=== PATIENT | female | born 1975 | race Caucasian/White ===

== ENCOUNTER 2021-11-18 11:49 | Inpatient (IN) ==
[2021-11-18 12:33] LABS: Bilirubin,Urine Negative (Negative); Blood,Urine Trace (Negative); Clarity,Urine Clear (Clear); Color,Urine Yellow (Yellow); Glucose,Urine (UA) Normal (Normal); Ketones,Urine 80 mg/dL (Negative); Leukocyte Esterase,Urine Negative (Negative); Mucus,Urine Many per lpf (None-Few); Nitrite,Urine Negative (Negative); Protein,Urine 100 mg/dL (Neg-Trace); RBC,Urine 0-3 per hpf (0-3); Specific Gravity,Urine > 1.030 (1.010-1.025); Squamous Epithelial Cell,Urine Moderate per hpf (None-Few); WBC,Urine 0-3 per hpf (0-3)
[2021-11-18 12:39] LABS: Basophils % 0.2 %; Eosinophils % 0.1 %; Hematocrit 42.5 % (35.3-44.9); Hemoglobin 14.6 g/dL (11.5-15.4); Immature Granulocytes % 0.4 % (0-4); Lymphocytes # 1.7 K/mcL (0.6-4.6); Lymphocytes % 12.4 %; Mean Corpuscular HGB Conc 34.4 g/dL (31.6-35.5); Mean Corpuscular Hemoglobin 31.9 pg (28.0-33.3); Mean Platelet Volume 9.7 fL (9.4-12.4); Monocytes % 7.5 %; Neutrophils # 10.7 K/mcL (1.6-8.9); Platelet Count 344 K/mcL (140-400); Red Blood Count 4.57 M/mcL (3.82-4.97); Red Cell Distribution Width 13.3 % (11.5-14.5); Segmented Neutrophils % 79.4 %; White Blood Count 13.5 K/mcL (4.3-11.1)
[2021-11-18 13:00] LABS: Amphetamine Screen,Urine Negative ng/mL (Cutoff=1000); Barbiturate Screen,Urine Negative ng/mL (Cutoff=200); Benzodiazepines Screen,Urine Negative ng/mL (Cutoff=200); Cannabinoid Screen,Urine Negative ng/mL (Cutoff = 50); Cocaine Screen,Urine Negative ng/mL (Cutoff= 300); Opiate Screen,Urine Negative ng/mL (Cutoff=300); Phencyclidine Screen,Urine Negative ng/mL (Cutoff=25)
[2021-11-18 13:25] LABS: Acetaminophen < 10 mcg/mL (10-20); BUN/Creatinine Ratio 18 (6-26); Blood Urea Nitrogen 12 mg/dL (6-20); Calcium 9.5 mg/dL (8.6-10.3); Carbon Dioxide 22 mEq/L (23-29); Chloride 102 mEq/L (98-107); Chol/HDL Ratio 2.1 (0-4.9); Cholesterol 143 mg/dL (< 200); Ethanol < 10 mg/dL (Less than 10); Glucose 69 mg/dL (70-105); HDL Cholesterol 68 mg/dL (40-59); LDL Cholesterol,Calculated 63 mg/dL (< 100); Osmolality,Calculated 280 (280-300); Potassium 3.5 mEq/L (3.5-5.1); Salicylate < 2.5 mg/dL (15.0-30.0); Sodium 136 mEq/L (136-145); Triglycerides 59 mg/dL (< 150); eGFR For African Americans > 60 (> 60); eGFR For Non-African Americans > 60 (> 60)
[2021-11-18 13:43] LABS: Estimated Average Glucose 117 mg/dl; Hemoglobin A1C 5.7 %
[2021-11-18 17:34] LABS: Influenza A PCR Negative (Negative); Influenza B PCR Negative (Negative); Resp. Syncytial Virus PCR Negative (Negative)
[2021-11-18 18:13] LABS: SARS-CoV-2 by PCR (In House) Negative (Negative)
[2021-11-18] MEDS ORDERED: *HR* LORazepam 1 MG TABLET PO PRN (20:42)
[2021-11-18] MEDS ORDERED: *HR* LORazepam 2 MG/ML VIAL IM PRN (20:42)
[2021-11-18] MEDS ORDERED: haloperidoL 5 MG TABLET PO PRN (20:42)
[2021-11-18] MEDS ORDERED: Haloperidol Lactate 5 MG/ML VIAL IM PRN (20:42)
[2021-11-19] MEDS: Nicotine 21 MG PATCH.TD24 TD SCH ×2 (01:38→08:40)
[2021-11-19] MEDS: Ibuprofen 400 MG TABLET PO PRN (04:57)
[2021-11-19] MEDS ORDERED: Furosemide 20 MG TABLET PO PRN (08:53)
[2021-11-19] MEDS ORDERED: *HR* Buprenorphine HCl 8 MG TAB.SUBL SL SCH (09:00)
[2021-11-19] MEDS: Loratadine 10 MG TABLET PO SCH (09:26)
[2021-11-19] MEDS: Gabapentin 400 MG CAPSULE PO SCH ×3 (09:42→20:33)
[2021-11-19] MEDS: RisperiDONE-M 1 MG TAB.RAPDIS PO SCH ×2 (12:54→20:33)
[2021-11-19 13:00] LABS: Albumin 4.3 g/dL (3.5-5.7); Albumin/Globulin Ratio 1.8 (1.1-2.2); Bilirubin,Direct 0.1 mg/dL (0.0-0.2); Bilirubin,Indirect 0.8 mg/dL (0.0-1.0); Bilirubin,Total 0.9 mg/dL (0.3-1.0); Chol/HDL Ratio 2.3 (0-4.9); Globulin 2.4 g/dL (2.4-3.5); Total Protein 6.7 g/dL (6.4-8.9)
[2021-11-19 13:12] LABS: Thyroid Stimulating Hormone 1.703 mcIU/mL (0.340-5.600)
[2021-11-19 14:40] LABS: Bilirubin,Urine Negative (Negative); Blood,Urine Negative (Negative); Clarity,Urine Clear (Clear); Color,Urine Light-Yellow (Yellow); Glucose,Urine (UA) Normal (Normal); Ketones,Urine Negative (Negative); Leukocyte Esterase,Urine Negative (Negative); Mucus,Urine Few per lpf (None-Few); Nitrite,Urine Negative (Negative); Protein,Urine 30 mg/dL (Neg-Trace); RBC,Urine 0-3 per hpf (0-3); Specific Gravity,Urine 1.027 (1.010-1.025); Squamous Epithelial Cell,Urine Moderate per hpf (None-Few); WBC,Urine 0-3 per hpf (0-3)
[2021-11-19] MEDS ORDERED: Patient Taking Own Medication 1 EACH PO SCH (15:15)
[2021-11-19] MEDS: *HR* Buprenorphine HCl 8 MG TAB.SUBL SL SCH (20:34)
[2021-11-19] MEDS: traZODone 50 MG TABLET PO PRN (20:34)
[2021-11-19] MEDS: hydrOXYzine pamoate 25 MG CAPSULE PO PRN (20:34)
[2021-11-20] MEDS ORDERED: Hydrocortisone Rectal 2.5% CRM 28 GM TUBE RC PRN (06:49)
[2021-11-20] MEDS: hydrOXYzine pamoate 25 MG CAPSULE PO PRN ×2 (07:29→18:36)
[2021-11-20] MEDS: Ibuprofen 400 MG TABLET PO PRN (07:29)
[2021-11-20] MEDS: Gabapentin 400 MG CAPSULE PO SCH ×4 (07:32→22:03)
[2021-11-20] MEDS: Loratadine 10 MG TABLET PO SCH (07:33)
[2021-11-20] MEDS: Nicotine 21 MG PATCH.TD24 TD SCH (07:33)
[2021-11-20] MEDS: *HR* Buprenorphine HCl 8 MG TAB.SUBL SL SCH ×2 (07:33→22:03)
[2021-11-20] MEDS: RisperiDONE-M 1 MG TAB.RAPDIS PO SCH ×2 (07:33→22:03)
[2021-11-21] MEDS: hydrOXYzine pamoate 25 MG CAPSULE PO PRN (04:53)
[2021-11-21] MEDS: Nicotine 21 MG PATCH.TD24 TD SCH (08:37)
[2021-11-21] MEDS: Gabapentin 400 MG CAPSULE PO SCH ×3 (08:37→21:00)
[2021-11-21] MEDS ORDERED: MOM Conc 10 ML UD.LIQ PO PRN (08:37)
[2021-11-21] MEDS ORDERED: Mag Hydrox/Al Hydrox/Simeth 30 ML UDC PO PRN (08:37)
[2021-11-21] MEDS: RisperiDONE-M 1 MG TAB.RAPDIS PO SCH ×2 (08:38→21:00)
[2021-11-21] MEDS: *HR* Buprenorphine HCl 8 MG TAB.SUBL SL SCH ×2 (08:38→20:59)
[2021-11-21] MEDS: Loratadine 10 MG TABLET PO SCH (08:38)
[2021-11-21] MEDS: traZODone 50 MG TABLET PO PRN (22:54)
[2021-11-22] MEDS: hydrOXYzine pamoate 25 MG CAPSULE PO PRN (06:47)
[2021-11-22] MEDS: RisperiDONE-M 1 MG TAB.RAPDIS PO SCH ×2 (08:36→20:34)
[2021-11-22] MEDS: Nicotine 21 MG PATCH.TD24 TD SCH (08:36)
[2021-11-22] MEDS: Gabapentin 400 MG CAPSULE PO SCH ×3 (08:37→20:34)
[2021-11-22] MEDS: Loratadine 10 MG TABLET PO SCH (08:38)
[2021-11-22] MEDS: *HR* Buprenorphine HCl 8 MG TAB.SUBL SL SCH ×2 (09:28→20:35)
[2021-11-22] MEDS: PARoxetine 20 MG TABLET PO SCH (10:04)
[2021-11-22 18:23] LABS: Bilirubin,Urine Negative (Negative); Blood,Urine Negative (Negative); Clarity,Urine Clear (Clear); Color,Urine Colorless (Yellow); Glucose,Urine (UA) Normal (Normal); Ketones,Urine Negative (Negative); Leukocyte Esterase,Urine Negative (Negative); Nitrite,Urine Negative (Negative); Protein,Urine Negative (Neg-Trace); Urobilinogen,Urine Normal (Normal)
[2021-11-23] MEDS: QUEtiapine Fumarate 25 MG TABLET PO PRN (02:35)
[2021-11-23] MEDS: hydrOXYzine pamoate 25 MG CAPSULE PO PRN (02:35)
[2021-11-23] MEDS: Ibuprofen 400 MG TABLET PO PRN ×2 (02:35→12:54)
[2021-11-23] MEDS: Loratadine 10 MG TABLET PO SCH (08:43)
[2021-11-23] MEDS: Gabapentin 400 MG CAPSULE PO SCH ×3 (08:43→21:25)
[2021-11-23] MEDS: PARoxetine 20 MG TABLET PO SCH (08:43)
[2021-11-23] MEDS: *HR* Buprenorphine HCl 8 MG TAB.SUBL SL SCH ×2 (08:43→21:25)
[2021-11-23] MEDS: Nicotine 21 MG PATCH.TD24 TD SCH (08:44)
[2021-11-23] MEDS: RisperiDONE-M 1 MG TAB.RAPDIS PO SCH ×2 (08:44→21:25)
[2021-11-24] MEDS: Nicotine 21 MG PATCH.TD24 TD SCH (08:34)
[2021-11-24] MEDS: Gabapentin 400 MG CAPSULE PO SCH ×3 (08:36→20:07)
[2021-11-24] MEDS: PARoxetine 20 MG TABLET PO SCH (08:36)
[2021-11-24] MEDS: *HR* Buprenorphine HCl 8 MG TAB.SUBL SL SCH ×2 (08:37→20:07)
[2021-11-24] MEDS: Loratadine 10 MG TABLET PO SCH (08:37)
[2021-11-24] MEDS: RisperiDONE-M 1 MG TAB.RAPDIS PO SCH ×2 (08:38→20:07)
[2021-11-24] MEDS: QUEtiapine Fumarate 25 MG TABLET PO PRN (21:44)
[2021-11-24] MEDS: hydrOXYzine pamoate 25 MG CAPSULE PO PRN (21:44)
[2021-11-25] MEDS: PARoxetine 20 MG TABLET PO SCH (08:10)
[2021-11-25] MEDS: Gabapentin 400 MG CAPSULE PO SCH ×3 (08:11→21:24)
[2021-11-25] MEDS: *HR* Buprenorphine HCl 8 MG TAB.SUBL SL SCH ×2 (08:11→21:23)
[2021-11-25] MEDS: Loratadine 10 MG TABLET PO SCH (08:11)
[2021-11-25] MEDS: RisperiDONE-M 1 MG TAB.RAPDIS PO SCH ×2 (08:11→21:25)
[2021-11-25] MEDS: Nicotine 21 MG PATCH.TD24 TD SCH (08:13)
[2021-11-26] MEDS: *HR* Buprenorphine HCl 8 MG TAB.SUBL SL SCH ×2 (09:30→20:36)
[2021-11-26] MEDS: RisperiDONE-M 1 MG TAB.RAPDIS PO SCH ×2 (09:30→20:36)
[2021-11-26] MEDS: Loratadine 10 MG TABLET PO SCH (09:30)
[2021-11-26] MEDS: Gabapentin 400 MG CAPSULE PO SCH ×3 (09:31→21:57)
[2021-11-26] MEDS: Nicotine 21 MG PATCH.TD24 TD SCH (09:32)
[2021-11-26] MEDS: PARoxetine 20 MG TABLET PO SCH (20:36)
[2021-11-26] MEDS: hydrOXYzine pamoate 25 MG CAPSULE PO PRN (21:57)
[2021-11-27] MEDS: Loratadine 10 MG TABLET PO SCH (08:30)
[2021-11-27] MEDS: RisperiDONE-M 1 MG TAB.RAPDIS PO SCH ×2 (08:30→20:02)
[2021-11-27] MEDS: Nicotine 21 MG PATCH.TD24 TD SCH (08:30)
[2021-11-27] MEDS: Gabapentin 400 MG CAPSULE PO SCH ×3 (08:32→20:00)
[2021-11-27] MEDS: *HR* Buprenorphine HCl 8 MG TAB.SUBL SL SCH ×2 (08:32→20:02)
[2021-11-27] MEDS: PARoxetine 20 MG TABLET PO SCH (20:01)
[2021-11-27] MEDS: hydrOXYzine pamoate 25 MG CAPSULE PO PRN (20:01)
[2021-11-28] MEDS: *HR* Buprenorphine HCl 8 MG TAB.SUBL SL SCH ×2 (08:51→20:28)
[2021-11-28] MEDS: Gabapentin 400 MG CAPSULE PO SCH ×3 (08:51→20:28)
[2021-11-28] MEDS: Loratadine 10 MG TABLET PO SCH (08:52)
[2021-11-28] MEDS: RisperiDONE-M 1 MG TAB.RAPDIS PO SCH ×2 (08:52→20:28)
[2021-11-28] MEDS: Nicotine 21 MG PATCH.TD24 TD SCH (08:56)
[2021-11-28] MEDS: Nicotine 2 MG GUM BC PRN ×5 (11:05→20:35)
[2021-11-28] MEDS ORDERED: Paliperidone Palmitate 234 MG/1.5 ML SYRINGE IM SCH (11:45)
[2021-11-28] MEDS: PARoxetine 20 MG TABLET PO SCH (20:28)
[2021-11-29] MEDS: QUEtiapine Fumarate 25 MG TABLET PO PRN (01:26)
[2021-11-29] MEDS: Nicotine 2 MG GUM BC PRN ×6 (01:26→20:39)
[2021-11-29] MEDS: RisperiDONE-M 1 MG TAB.RAPDIS PO SCH ×2 (08:51→20:39)
[2021-11-29] MEDS: Loratadine 10 MG TABLET PO SCH (08:51)
[2021-11-29] MEDS: Gabapentin 400 MG CAPSULE PO SCH ×3 (08:51→20:40)
[2021-11-29] MEDS: *HR* Buprenorphine HCl 8 MG TAB.SUBL SL SCH ×2 (08:52→20:39)
[2021-11-29] MEDS: hydrOXYzine pamoate 25 MG CAPSULE PO PRN (17:27)
[2021-11-29] MEDS: PARoxetine 20 MG TABLET PO SCH (20:39)
[2021-11-29] MEDS ORDERED: RisperiDONE-M 1 MG TAB.RAPDIS PO SCH (21:00)
[2021-11-30] MEDS: hydrOXYzine pamoate 25 MG CAPSULE PO PRN ×3 (02:34→22:13)
[2021-11-30] MEDS: Nicotine 2 MG GUM BC PRN ×8 (02:35→21:04)
[2021-11-30] MEDS: *HR* Buprenorphine HCl 8 MG TAB.SUBL SL SCH ×2 (08:37→21:01)
[2021-11-30] MEDS: RisperiDONE-M 1 MG TAB.RAPDIS PO SCH ×2 (08:37→21:01)
[2021-11-30] MEDS: Gabapentin 400 MG CAPSULE PO SCH ×3 (08:38→21:01)
[2021-11-30] MEDS: Loratadine 10 MG TABLET PO SCH (08:38)
[2021-11-30] MEDS: PARoxetine 20 MG TABLET PO SCH (21:01)
[2021-11-30] MEDS: QUEtiapine Fumarate 25 MG TABLET PO PRN (22:13)
[2021-12-01] MEDS: Nicotine 2 MG GUM BC PRN ×6 (01:01→20:40)
[2021-12-01] MEDS: *HR* Buprenorphine HCl 8 MG TAB.SUBL SL SCH ×2 (08:29→20:39)
[2021-12-01] MEDS: Gabapentin 400 MG CAPSULE PO SCH ×3 (08:29→20:39)
[2021-12-01] MEDS: RisperiDONE-M 1 MG TAB.RAPDIS PO SCH (08:29)
[2021-12-01] MEDS: Loratadine 10 MG TABLET PO SCH (08:30)
[2021-12-01 16:27] LABS: Bilirubin,Urine Negative (Negative); Blood,Urine Large (Negative); Clarity,Urine Clear (Clear); Color,Urine Light-Yellow (Yellow); Glucose,Urine (UA) Normal (Normal); Ketones,Urine Negative (Negative); Leukocyte Esterase,Urine Negative (Negative); Nitrite,Urine Negative (Negative); Protein,Urine Trace mg/dL (Neg-Trace); RBC,Urine TNTC per hpf (0-3); Specific Gravity,Urine 1.024 (1.010-1.025); Squamous Epithelial Cell,Urine Few per hpf (None-Few); Urobilinogen,Urine Normal (Normal); WBC,Urine 0-3 per hpf (0-3)
[2021-12-01] MEDS: PARoxetine 20 MG TABLET PO SCH (20:40)
[2021-12-01] MEDS ORDERED: risperiDONE 1 MG TABLET PO SCH (21:00)
[2021-12-02] MEDS: QUEtiapine Fumarate 25 MG TABLET PO PRN (01:09)
[2021-12-02] MEDS ORDERED: Paliperidone Palmitate 156 MG/ML SYRINGE IM SCH (08:00)
[2021-12-02] MEDS: *HR* Buprenorphine HCl 8 MG TAB.SUBL SL SCH (08:16)
[2021-12-02] MEDS: Loratadine 10 MG TABLET PO SCH (08:16)
[2021-12-02] MEDS: Gabapentin 400 MG CAPSULE PO SCH (08:16)
[2021-12-02] MEDS: Nicotine 2 MG GUM BC PRN ×2 (08:41→12:29)
[2021-12-02 09:01] VITALS: BP 125/85; PULSE 75; TEMP 97.9; O2SAT 95
[2021-12-02] MEDS: hydrOXYzine pamoate 25 MG CAPSULE PO PRN (10:34)
== END 2021-12-02 14:35 | disposition home or self-care (01) | DRG 751 ==
LOC: EMEROOARM 11:49 → 1ANU 18:41
PROVIDERS: ADMIT Psychiatry & Neurology Psychiatry; ATTEND Psychiatry & Neurology Psychiatry